=== PATIENT | male | born 1960 | race Caucasian/White ===

== ENCOUNTER 2017-05-19 14:09 | Emergency (ER) | payer OTHER ==
--- NOTE | ~2017-05-19 | CT4 ---
[facility] A Service of [facility] & [facility] RADIOLOGY TEXT RESULTS PATIENT: SUNDEEP HINES LOCATION: [facility] : 62 UNIT #: [id number] AGE: [address]: Jeremie Tolbert DO SEX: M ORDER DR: [id number] [facility] [address] [place], [place] [address] [id number] MR#: [id number] Acc #: [id number] NAME: SUNDEEP HINES. : 1960 SEX: M STUDY DATE/TIME: 05/19/2017 16:48 UNIT: [facility] ROOM: STUDY DESCRIPTION: CT Abd and Pelv Wo Cont Attending Physician: Jeremie Tolbert D.O. Ordering Physician: Jeremie Tolbert D.O. Primary Care Physician: Theo LoyaPGerriRCarmelo MEDICAL IMAGING REPORT This report is preliminary unless electronic signature is present EXAM CT of the abdomen and pelvis without contrast, 05/19/2017, 1648 hours. CLINICAL HISTORY Patient complains of left flank pain radiating to the testicles since 10:30 a.m. today. History of stones. COMPARISON CT abdomen and pelvis, 06/14/2015. TECHNIQUE Helical noncontrasted images were obtained from the lung bases through the pubic symphysis. No oral or intravenous contrast was administered. Sagittal and coronal reconstructions were performed. Total exam DLP 1123 mGy-cm. This CT exam was performed with one or more of the following radiation dose reduction techniques: automatic exposure control, adjustment of mA and/or kV according to patient size, and iterative reconstruction. FINDINGS Images through the lung bases demonstrate mild emphysematous change. There is no nodule or infiltrate. No effusion. The distal esophagus is normal. Images through the abdomen demonstrate stable small low attenuation lesions in both the right and left lobes of the liver consistent with benign cysts. There is stable intra- and extrahepatic bile duct dilatation in this postcholecystectomy patient. The spleen, pancreas and pancreatic duct are normal. The adrenal glands are normal. The left kidney demonstrates no definite stones. There is a cyst laterally in the lower pole unchanged. There is no pelvocaliectasis or ureterectasis on the left. [facility] A Service of [facility] RADIOLOGY TEXT RESULTS PATIENT: SUNDEEP HINES LOCATION: [facility] : 62 UNIT #: [id number] AGE: [address]: Jeremie Tolbert DO SEX: M ORDER DR: The right kidney demonstrates mild pelvocaliectasis and a punctate stone in the posterior mid-right kidney. There is a small cyst in the anterior lower pole right kidney. There is mild to moderate right ureterectasis to the level of the mid right ureter at the level of the L5 pedicle consistent with a stone measuring 3-4 mm. This is new. The distal right ureter is decompressed and the bladder is normal. Stomach and small bowel are normal. The appendix is well seen and normal. There is no colonic wall thickening. There are uncomplicated diverticula of the distal descending colon and sigmoid colon. IMPRESSION 1. There is a 3-4 mm right mid ureteral stone at the level of the pedicle of L5 on the right resulting in mild pelvocaliectasis and upper ureterectasis likely the source of the patient's pain. 2. Small bilateral renal cysts. 3. Multiple low-density liver lesions unchanged most consistent with benign hepatic cysts. 4. Normal appendix. 5. Uncomplicated diverticulosis of the distal descending colon and sigmoid colon unchanged. STAT * RESULT Dictated by... Bren Spring M.D. THIS IS AN ELECTRONICALLY VERIFIED REPORT Bren Spring M.D. at 05/19/2017 8:32 PM COURTNEY/janna TD: 05/19/2017 17:50 JOB #: [id number] MEDICAL IMAGING REPORT Page 1 of 1 COPY
--- NOTE | ~2017-05-19 | EKG ---
PATIENT: SUNDEEP HINES UNIT #: [id number] Ventricular Rate: 77 BPM Atrial Rate: 77 BPM P-R Interval: 142 ms QRS Duration: 84 ms Q-T Interval: 392 ms QTC Calculation(Bezet): 443 ms P [place]: 55 degrees Calculated R [place]: -47 degrees Calculated T [place]: 61 degrees Diagnosis Line: Normal sinus rhythm with sinus arrhythmia Diagnosis Line: Left anterior fascicular block Diagnosis Line: Possible Inferior infarct , age undetermined Diagnosis Line: Possible Anterior infarct (cited on or before Diagnosis Line: 19-MAY-2017) Diagnosis Line: Abnormal ECG Diagnosis Line: When compared with ECG of 19-MAY-2017 21:13, Diagnosis Line: (unconfirmed) Diagnosis Line: No significant change was found Diagnosis Line: Confirmed by SABINA FRAGOSO MD ([id number]) on Diagnosis Line: 05/21/2017 7:58:00 AM INTERPRETING MD: FOUZIA MO
[~2017-05-19 14:09] MED LIST: ALBUTEROL17 GM INH; AZITHROMYCIN250 MG PO; CIPRO PO; CIPRO250 MG; CLEOCIN PO; DIAZEPAM PO; FLOMAX0.4 M1 PO; IBUPROFEN PO; K-DUR20 ME1 PO; KLONOPIN PO; MACROBID100 MG PO; MEDROL DOSEPAK4 MG DOB; PERCOCET 51 UDTAB 5/ PO; PERCOCET PO; PERCOCET5/325 PO; PHENERGAN PO; PHENERGAN25 MG PO; PREDNISONE PO; ROBITUSSIN A-C S5 ML PO; TRIAMCINOLONE A15 G3 EXT; ZOFRAN ODT4 MG/UDTAB PO
[2017-05-19 14:24] LABS: URINE SOURCE CLEAN CATCH
[2017-05-19 14:29] LABS: URINE APPEARANCE CLOUDY; URINE BLOOD 3+ (NEG); URINE COLOR ORANGE; URINE GLUCOSE 500 MG/DL (NEG); URINE KETONE NEG (NEG); URINE LEUKOCYTE ESTERASE 1+ (NEG); URINE NITRATE NEG (NEG); URINE PH 5.5 (5-8); URINE PROTEIN 3+ (NEG); URINE SPECIFIC GRAVITY 1.028 (1.003-1.035)
[2017-05-19 14:32] LABS: CULTURE INDICATED? YES; URBCS1 AUWI INNUM /[HPF] (0-2); URINE BACTERIA AUWI NEG (NEGATIVE); URINE SQUAMOUS EPITHELIAL CELL OCC /[HPF]
[2017-05-19 14:48] LABS: U HYALINE CASTS AUWI 0-2 /[LPF]; URINE BILIRUBIN NEG (NEG)
[2017-05-19 15:20] LABS: BASOPHIL# 0.1 X10e3 (0-0.3); BASOPHIL% 0.8 % (0-2.5); EOSINOPHIL# 0.2 X10e3 (0-0.7); EOSINOPHIL% 1.8 % (0.0-7.0); HEMATOCRIT 46.7 % (38.0-50.0); HEMOGLOBIN 15.8 gm/dL (13.0-16.0); LYMPHOCYTE# 2.5 X10e3 (1.0-3.5); MEAN CELL VOLUME 85.8 FL (83-96); MEAN CORPUSCULAR HEMOGLOBIN 29.1 PG (28-34); MEAN CORPUSCULAR HGB CONC 33.9 g/dL (30-36); MONOCYTE# 0.7 X10e3 (0-1.0); MONOCYTE% 6.5 % (3.0-12.0); NEUTROPHIL# 6.6 X10e3 (1.5-7.1); NEUTROPHIL% 65.9 % (40-75); PLATELET COUNT 178 X10e3 (140-420); RED BLOOD COUNT 5.44 X10e (3.90-5.60); RED CELL DISTRIBUTION WIDTH 13.3 % (11.0-15.5); WHITE BLOOD COUNT 10.1 X10e3 (4.0-10.5)
[2017-05-19 15:21] LABS: DIFF IND NO
[2017-05-19 15:27] LABS: BILIRUBIN, DIRECT 0.1 mg/dL (0.0-0.2); BILIRUBIN,TOTAL 1.1 mg/dL (0.2-2.0); CREATININE SERUM 0.5 mg/dL (0.6-1.4); GLOM FILT RATE Estimated 121.2 mL/min (>60); PROTEIN TOTAL SERUM 7.6 g/dL (6.0-8.3)
[2017-05-19 15:31] LABS: POTASSIUM 2.9 mmol/L (3.5-5.1)
[2017-05-19 21:05] LABS: POC - CKMB <1.0 ng/mL (0.0-7.9); POC - TROPONIN <0.05 ng/mL (<=0.05)
== END 2017-05-19 22:39 | disposition home or self-care (01) ==
LOC: CED 14:09
PROVIDERS: Emergency Medicine
DX: E87.6 Hypokalemia (principal); E83.42 Hypomagnesemia; J44.9 Chronic obstructive pulmonary disease, unspecified; N23 Unspecified renal colic; F41.0 Panic disorder [episodic paroxysmal anxiety]; F17.200 Nicotine dependence, unspecified, uncomplicated; Z87.442 Personal history of urinary calculi; Z88.5 Allergy status to narcotic agent; Z91.041 Radiographic dye allergy status; Z98.890 Other specified postprocedural states
CPT/HCPCS: 36415; 74176; 80048; 80076; 81003; 82553; 82947; 83690; 83735; 84484; 85025; 87086; 93005; 96365; 96366; 96367; 96372; 96375; 99284; J0696; J1170; J3475